=== PATIENT | male | born 1945 | race Hispanic/Latino ===

== ENCOUNTER 2016-11-19 18:51 | Inpatient (IN) | payer MEDICARE ==
[2016-11-19 22:02] LABS: PARTIAL THROMBOPLASTIN TIME 27.6 SECONDS (23.3-32.5)
[2016-11-19 22:05] LABS: BASO # 0.1 K/uL (0.0-0.2); BASO % 0.3 % (0.0-2.0); HEMATOCRIT 41.7 % (35.0-51.0); LYMPH % 4.8 % (20.0-40.0); MEAN CELL VOLUME 88.8 fl (80.0-94.0); MEAN CORPUSCULAR HEMOGLOBIN 27.8 pg (27.0-31.0); MEAN CORPUSCULAR HGB CONC 31.3 g/dL (33.0-37.0); MEAN PLATELET VOLUME 8.9 fl (7.2-11.7); MONO # 1.2 K/uL (0.0-0.8); MONO % 5.9 % (0.0-10.0); NEUT # 17.8 K/uL (1.8-7.0); PLATELET COUNT 258 K/uL (130-400); RED CELL DISTRIBUTION WIDTH 16.8 % (11.5-14.5)
[2016-11-19 22:12] LABS: ALB/GLOB RATIO 1.4 (1.0-2.1); ALKALINE PHOSPHATASE 83 U/L (38-126); ALT/SGPT 27 U/L (21-72); AST/SGOT 23 U/L (17-59); BILIRUBIN,TOTAL 0.8 mg/dl (0.2-1.3); BLOOD UREA NITROGEN 21 mg/dl (9-20); CALCIUM 8.9 mg/dL (8.4-10.2); CARBON DIOXIDE 25 mmol/L (22-30); CHLORIDE 96 mmol/L (98-107); GFR AFRICAN-AMERICAN > 60; GLUCOSE,RANDOM 215 mg/dL (75-110); POTASSIUM 3.8 MMOL/L (3.6-5.0); SODIUM 136 mmol/l (132-148); TOTAL PROTEIN 7.6 G/DL (6.3-8.2)
[2016-11-19] MEDS ORDERED: Sodium Chloride 0.9% 500 ML IV STA (23:08)
--- NOTE | 2016-11-19 23:08 | ED PDOC ---
HPI: Male Pain Time Seen by Provider: 11/19/16 20:18 Chief Complaint (Nursing): Male Genitourinary Chief Complaint (Provider): hematuria and retention History Per: Patient History/Exam Limitations: no limitations Onset/Duration Of Symptoms: Hrs (2 hours) Quality Of Discomfort: Aching Associated Symptoms: denies: Fever, Chills, Nausea, Vomiting Additional Complaint(s): Pt had bladder biopsy earlier today. He reports it was at an area very close to his prostate/urethra. Discharge with hua, which was draining bladder well of pinkish urine. Over the course of the afternoon became darker and his urine output decreased despite drinking large amount of water. 2 hours ago he stopped being able to void freely and has developed slow bloody leaking of urine, with occasional clot. Increased lower abdominal distension as well. Past Medical History Reviewed: Historical Data, Nursing Documentation, Vital Signs Vital Signs: Last Vital Signs Temp 98.1 F 11/19/16 19:09 Pulse 127 H 11/19/16 19:09 Resp 22 11/19/16 19:09 BP 156/81 H 11/19/16 19:09 Pulse Ox 95 11/19/16 19:09 - Medical History PMH: HTN - Surgical History Surgical History: No Surg Hx Other surgeries: Prostate biopsy. H/o urinary retention - Family History Family History: States: No Known Family Hx - Home Medications Home Medications: Ambulatory Orders Medication Instructions Recorded Allopurinol [Zyloprim] 300 mg PO BID 11/19/16 Finasteride [Proscar] 5 mg PO DAILY 11/19/16 Furosemide [Lasix] 40 mg PO AC 11/19/16 GlipiZIDE [Glucotrol] 5 mg PO BID 11/19/16 Lisinopril [Zestril] 10 mg PO DAILY 11/19/16 MetFORMIN [glucoPHAGE] 1,000 mg PO BID 11/19/16 Simvastatin [Simvastatin] 5 mg PO HS 11/19/16 Aspirin [Aspirin Chewable] 81 mg PO DAILY 11/20/16 - Allergies Allergies/Adverse Reactions: Allergies Allergy/AdvReac Type Severity Reaction Status Date / Time No Known Allergies Allergy Verified 11/19/16 19:09 Review of Systems ROS Statement: Except As Marked, All Systems Reviewed And Found Negative (and as per HPI) Constitutional: Negative for: Fever, Chills Gastrointestinal: Positive for: Abdominal Pain Genitourinary Male: Positive for: Hematuria, Penile Discharge. Negative for: Penile Pain Physical Exam - Reviewed Nursing Documentation Reviewed: Yes Vital Signs Reviewed: Yes - Physical Exam Appears: Positive for: Well, Non-toxic Head Exam: Positive for: ATRAUMATIC, NORMOCEPHALIC Skin: Positive for: Warm, Dry Gastrointestinal/Abdominal: Positive for: Bowel Sounds, Soft, Tenderness (mild) , Distended (mild suprapubic) Male Genital Exam: Positive for: bleeding (penile from meatus), other (marked testicular swelling) Back: Positive for: Normal Inspection. Negative for: L CVA Tenderness, R CVA Tenderness Extremity: Positive for: Normal ROM. Negative for: Pedal Edema Neurologic/Psych: Positive for: Alert. Negative for: Motor/Sensory Deficits - Laboratory Results Result Diagrams: 11/22/16 07:15 11/22/16 07:15 Interpretation Of Abn Labs: PLEASE NOTE: ABOVE LABS DO NO DEMONSTRATE LABS AT THE TIME OF ER EVALUATION. Labs demonstrate leukocytosis, no anemia. - ECG O2 Sat by Pulse Oximetry: 95 - Progress Condition: Unchanged - Critical Care Total Time (In Min): 30 Documented Critical Care: Time excludes all time spent performint seperately billable procedures Medical Decision Making Medical Decision Makinp TRISH Stewart Urology resident associated with patient's urologist. Pt should have large hua placed and aggressively hand irrigated prior to CBI. High likelihood of reclotting of hua if actively bleeding. 1030p Initially pt's hua produced large amount of bloody urine, which started to turn light pink. However, then started to leak and then stopped draining through hua. Ordered replacement hua as that hua most likely clotted. 1130p New large 3way hua again initially flowed freely and now slowed. Pt has completed 6L of CBI. TRISH Toure Urology first line production supervisor who recommends to continue CBI and attempt transfer to pt's private urologist. TR[facility]rology at [facility] who advises that if pt just needs CBI should just be hospitalized here. TRISH Toure again and with Dr Chase Hospitalist for hospitalization. Disposition - Clinical Impression Clinical Impression: Hematuria, Hua catheter problem, Urinary retention - Disposition Disposition Time: 23:30 Condition: GUARDED - Pt Status Changed To: Hospital Disposition Of: Inpatient - Admit Certification Admit to Inpatient:: After my assessment, the patient will require hospitalization for at least two midnights. This is because of the severity of symptoms shown, intensity of services needed, and/or the medical risk in this patient being treated as an outpatient. - POA Present On Arrival: Cath Associated UTI
--- NOTE | 2016-11-20 00:24 | CP.PCM.HP ---
History of Present Illness - History of Present Illness History of Present Illness: PCP: Not on service Chief Complaint: Hematuria HPI: 71 years old obese male with hx of Bladder cancer, HTN, DM II and ERMIAS on CPAP, had biopsy of the bladder done early yesterday 11/19/16 at the [facility]. After voiding freely and passing clear pink urine he was sent home. He later gradually began having difficulty to urinate until the flow slowed to only bloody leaks and clots along with severe pain to the lower abdomen. No fever, nausea, vomits, nor diarrhea. In the ED a 3 way hua catheter f24 was inserted which became filled of clots and removed. A new f24 hua catheter was re inserted. PMH: HTN; DM II; HLD; Asthma, COPD: ERMIAS: Gout: Bladder cancer PSH: TURP; Lapband; Bladder Biopsy 11/19/16 SH: No illegal drugs; Quit smoking many years ago; Occasional Alcohol use; Live alone; Retired FH: Father with prostate cancer; mother eith Rhabdomyosarcoma Allergies: NKDA Medication: Metformin; Zestril; Glucotrol; Lasix; Allopurinal; Simvastatin Present on Admission - Present on Admission Any Indicators Present on Admission: No History of DVT/PE: No History of Uncontrolled Diabetes: No Urinary Catheter: No Decubitus Ulcer Present: No Review of Systems - Constitutional Constitutional: absent: Fatigue, Fever, Frequent Falls, Weakness - EENT Eyes: Requires Corrective Lenses. absent: Blurred Vision, Photophobia, Sees Flashes Ears: absent: Decreased Hearing, Ear Discharge, Ear Pain, Tinnitus Nose/Mouth/Throat: Dry Mouth. absent: Epistaxis, Nasal Congestion, Nasal Discharge, Sinus Pain, Sinus Pressure, Sore Throat - Cardiovascular Cardiovascular: Slow Heart Rate. absent: Chest Pain, Dyspnea, Palpitations - Respiratory Respiratory: Wheezing. absent: Cough, Dyspnea, Stridor - Gastrointestinal Gastrointestinal: Abdominal Pain. absent: Constipation, Diarrhea, Hematemesis, Nausea, Vomiting - Genitourinary Genitourinary: absent: Dysuria, Flank Pain, Hematuria, Urinary Hesitance - Musculoskeletal Musculoskeletal: absent: Arthralgias, Back Pain, Muscle Weakness, Neck Pain - Integumentary Integumentary: absent: Pruritus, Rash, Skin Ulcer, Sores, Striae Additional comments: trace edema at the lower extemities - Neurological Neurological: absent: Dizziness, Focal Weakness, Headaches, Loss of Vision, Syncope, Weakness - Psychiatric Psychiatric: absent: Anxiety, Depression, Memory Loss, Panic Attacks - Endocrine Endocrine: absent: Polydipsia, Polyphagia, Polyuria - Hematologic/Lymphatic Hematologic: absent: Easy Bleeding, Easy Bruising Past Patient History - Past Medical History & Family History Past Medical History?: Yes - Past Social History Smoking Status: Former Smoker Chewing Tobacco Use: No Cigar Use: No Alcohol: Social Drugs: Denies Home Situation {Lives}: Alone - CARDIAC Hx Cardiac Disorders: Yes Hx Hypercholesterolemia: Yes Hx Hypertension: Yes - PULMONARY Hx Respiratory Disorders: No Hx Asthma: Yes Hx Sleep Apnea: Yes - NEUROLOGICAL Hx Neurological Disorder: No - HEENT Hx HEENT Problems: No - RENAL Hx Chronic Kidney Disease: No - ENDOCRINE/METABOLIC Hx Endocrine Disorders: Yes Hx Diabetes Mellitus Type 2: Yes - HEMATOLOGICAL/ONCOLOGICAL Hx Cancer: Yes (Bladder) - GENITOURINARY/GYNECOLOGICAL Hx Genitourinary Disorders: Yes (TURP) Hx Bladder Cancer: Yes - PSYCHIATRIC Hx Substance Use: No - SURGICAL HISTORY Hx Surgeries: Yes (bladder biopsy) Other/Comment: TURP; Lap Band - ANESTHESIA Hx Anesthesia: Yes Hx Anesthesia Reactions: No Meds Allergies/Adverse Reactions: Allergies Allergy/AdvReac Type Severity Reaction Status Date / Time No Known Allergies Allergy Verified 11/19/16 19:09 Physical Exam - Constitutional Appears: No Acute Distress - Head Exam Head Exam: ATRAUMATIC, NORMAL INSPECTION, NORMOCEPHALIC - Eye Exam Eye Exam: EOMI, Normal appearance Pupil Exam: NORMAL ACCOMODATION, PERRL - ENT Exam ENT Exam: Mucous Membranes Moist, Normal Exam, Normal External Ear Exam, Normal Oropharynx - Neck Exam Neck exam: Positive for: Normal Inspection. Negative for: Tenderness - Respiratory Exam Respiratory Exam: Wheezes. absent: Rales, Rhonchi - Cardiovascular Exam Cardiovascular Exam: REGULAR RHYTHM, RRR, +S1, +S2. absent: Gallop, JVD - GI/Abdominal Exam GI & Abdominal Exam: absent: Normal Bowel Sounds, Tenderness Additional comments: Obese, Soft, Mild tenderness across the left and right lower abdomen, No guarding, no rebound, no viceromegaleas. - Rectal Exam Rectal Exam: Deferred - Extremities Exam Extremities exam: Positive for: full ROM, normal inspection. Negative for: calf tenderness - Back Exam Back exam: NORMAL INSPECTION. absent: CVA tenderness (L), CVA tenderness (R) - Neurological Exam Neurological exam: Alert, CN II-XII Intact, Oriented x3, Reflexes Normal - Psychiatric Exam Psychiatric exam: Normal Affect, Normal Mood - Skin Skin Exam: Dry, Intact, Normal Color, Warm Results - Vital Signs Recent Vital Signs: Last Vital Signs Temp 98.1 F 11/19/16 19:09 Pulse 127 H 11/19/16 19:09 Resp 22 11/19/16 19:09 BP 156/81 H 11/19/16 19:09 Pulse Ox 95 11/19/16 23:18 - Labs Result Diagrams: 11/20/16 01:02 11/19/16 21:30 Labs: Laboratory Results - last 24 hr 11/19/16 11/19/16 11/19/16 21:30 21:30 21:30 WBC 20.0 H RBC 4.69 Hgb 13.0 Hct 41.7 MCV 88.8 MCH 27.8 MCHC 31.3 L RDW 16.8 H Plt Count 258 MPV 8.9 Neut % (Auto) 89.0 H Lymph % (Auto) 4.8 L Leslie % (Auto) 5.9 Eos % (Auto) 0.0 Baso % (Auto) 0.3 Neut # 17.8 H Lymph # 1.0 Leslie # 1.2 H Eos # 0.0 Baso # 0.1 PT 10.7 INR 1.03 APTT 27.6 Sodium 136 Potassium 3.8 Chloride 96 L Carbon Dioxide 25 Anion Gap 19 BUN 21 H Creatinine 1.0 Est GFR ( Amer) > 60 Est GFR (Non-Af Amer) > 60 Random Glucose 215 H Calcium 8.9 Total Bilirubin 0.8 AST 23 ALT 27 Alkaline Phosphatase 83 Total Protein 7.6 Albumin 4.4 Globulin 3.2 Albumin/Globulin Ratio 1.4 Blood Type Antibody Screen BBK History Checked 11/19/16 21:30 WBC RBC Hgb Hct MCV MCH MCHC RDW Plt Count MPV Neut % (Auto) Lymph % (Auto) Leslie % (Auto) Eos % (Auto) Baso % (Auto) Neut # Lymph # Leslie # Eos # Baso # PT INR APTT Sodium Potassium Chloride Carbon Dioxide Anion Gap BUN Creatinine Est GFR ( Amer) Est GFR (Non-Af Amer) Random Glucose Calcium Total Bilirubin AST ALT Alkaline Phosphatase Total Protein Albumin Globulin Albumin/Globulin Ratio Blood Type AB POSITIVE Antibody Screen Negative BBK History Checked No verified bt Assessment & Plan - Assessment and Plan (Free Text) Assessment: #. Hematuria #. HTN #. DM II #. SIRS #. Dehydration #. Sleep apnea Plan: 71 years old obese male with hx of Bladder cancer, HTN, DM II and ERMIAS on CPAP, had biopsy of the bladder done early yesterday 11/19/16 at the [facility]. . He later developed urinary retention with slow flow of bloody leaks and clots along with severe pain to the lower abdomen. #. Hematuria secondary to bladder biopsy Urinary retention due to the blocked urethra caused by the clots. - Urology Dr Ojeda consulted - Continuous bladder irrigation #. HTN - controll with Zestril - Follow blood pressures #. DM II with hyperglycemia - Diabetic diet - Lispro insulin sliding scale according to accucheck - Metformia - Glucotrol - Last HbA1c was 5.6 as per patient #. SIRS with WBC of 20 and HR of 127 - no antibiotic at present - No antibiotic #. Dehydration - IV fluids with NS - Follow renal labs #. Sleep apnea - Continue CPAP #. DVT prophylaxis with SCD. #. Code Status: Full - Date & Time Date: 11/20/16 Time: 00:24
[2016-11-20 00:53] LABS: NEUTROPHIL 91 % (42-75); REACTIVE LYMPHOCYTES 1 % (0-0); TOTAL CELLS COUNTED 100
[2016-11-20 00:57] LABS: STOMATOCYTES SLIGHT
[2016-11-20 01:06] LABS: BASO # 0.1 K/uL (0.0-0.2); BASO % 0.3 % (0.0-2.0); EOS # 0.1 K/uL (0.0-0.7); EOS % 0.3 % (0.0-4.0); HEMATOCRIT 39.1 % (35.0-51.0); LYMPH # 0.8 K/uL (1.0-4.3); LYMPH % 4.1 % (20.0-40.0); MEAN CELL VOLUME 88.1 fl (80.0-94.0); MEAN CORPUSCULAR HGB CONC 31.7 g/dL (33.0-37.0); MEAN PLATELET VOLUME 8.3 fl (7.2-11.7); MONO % 5.1 % (0.0-10.0); NEUT # 18.2 K/uL (1.8-7.0); NEUT % 90.2 % (50.0-75.0); RED CELL DISTRIBUTION WIDTH 16.6 % (11.5-14.5); WHITE BLOOD COUNT 20.2 K/uL (4.8-10.8)
[2016-11-20] MEDS: Sodium Chloride 0.9% 1,000 ML IV SCH ×3 (01:15→14:35)
[2016-11-20 01:21] LABS: RBC URINE 20664 /hpf (0-3); URINE BILIRUBIN NEGATIVE (NEGATIVE); URINE BLOOD MODERATE (NEGATIVE); URINE COLOR RED (YELLOW); URINE GLUCOSE (UA) NEG (Normal); URINE KETONE NEGATIVE (NEGATIVE); URINE LEUKOCYTE ESTERASE NEG Leu/uL (Negative); URINE PROTEIN 100 mg/dL (NEGATIVE); URINE UROBILINOGEN 0.2-1.0 mg/dL (0.2-1.0); WBC CLUMPS MANY /hpf; WBC URINE 1554 /hpf (0-5)
[2016-11-20] MEDS: Insulin Lispro (humaLOG) 100 Units/ml Inj SC SCH ×5 (09:25→23:02)
--- NOTE | 2016-11-20 11:43 | CP.PCM.PN ---
Subjective - Date & Time of Evaluation Date of Evaluation: 11/20/16 Time of Evaluation: 11:24 - Subjective Subjective: Discussed with nursing staff((9;49AM) Dr sousa(10:13 am) and er (11:57pm). Er md fox pt had prostate biopsy at [facility] yesterday,SEE NOTE, Hospatilist indicates pt had bladder biopsy and has hx of bladder ca.SEE NOTE. ER was advised to transfer to [facility] were accurate info regarding yesterdays procedure could be obtained.Er elected to admit pt to hospatilist service. . Pt has a 3 way hua which was running clear last night but now is not draining even after being irrigated by kvng naranjo. I suggested that the hua should be removed, and pt be given a voiding trial. If pt voids leave hua out. As I comunicated to ER doc last night and staff ltoday, I will Dr sousa will be covering me today,I will return later this evining.,I would also suggest PT should have a CT scan of abdomen and pelvis and pt should be covered with iv antibiotics. MARCELLE Objective - Vital Signs/Intake and Output Vital Signs (last 24 hours): Temp Pulse Resp BP Pulse Ox 97.4 F L 84 23 129/70 96 11/20/16 08:37 11/20/16 08:37 11/20/16 08:37 11/20/16 08:37 11/20/16 08:37 Intake and Output: 11/20/16 11/20/16 06:59 18:59 Intake Total 4700 Output Total 5100 Balance -400 - Medications Medications: Current Medications Allopurinol (Zyloprim) 300 mg PO BID [facility] Last Admin: 11/20/16 09:16 Dose: 300 mg Finasteride (Proscar) 5 mg PO DAILY [facility] Last Admin: 11/20/16 09:17 Dose: 5 mg Glipizide (Glucotrol) 5 mg PO BID [facility] Last Admin: 11/20/16 09:16 Dose: 5 mg Sodium Chloride (Sodium Chloride 0.9%) 1,000 mls @ 75 mls/hr IV .[id number] [facility] Stop: 11/21/16 01:01 Last Admin: 11/20/16 03:45 Dose: 75 mls/hr Insulin Human Lispro (Humalog) 0 units SC [facility] PRN Reason: Protocol Last Admin: 11/20/16 09:32 Dose: Not Given Lisinopril (Zestril) 10 mg PO DAILY [facility] Last Admin: 11/20/16 09:17 Dose: 10 mg Metformin HCl (Glucophage) 1,000 mg PO BID [facility] Last Admin: 11/20/16 09:17 Dose: 1,000 mg Pravastatin Sodium (Pravachol) 10 mg PO HS [facility] - Labs Labs: 11/20/16 01:02 PT 10.7 SECONDS (9.6-11.2) 11/19/16 21:30 INR 1.03 (0.92-1.08) 11/19/16 21:30 APTT 27.6 SECONDS (23.3-32.5) 11/19/16 21:30
--- NOTE | 2016-11-20 12:35 | CT ---
PROCEDURE: CT Abdomen and Pelvis without Oral or IV contrast. HISTORY: Hematuria COMPARISON: None available TECHNIQUE: Contiguous axial images of the abdomen and pelvis. No oral or IV contrast administered. Coronal and Sagittal reformats generated and reviewed. Radiation dose: Total exam DLP = 1099.19 mGy-cm. This CT exam was performed using one or more of the following dose reduction techniques: Automated exposure control, adjustment of the mA and/or kV according to patient size, and/or use of iterative reconstruction technique. FINDINGS: There is limited evaluation of the solid organs without the administration of IV contrast. Examination limited by habitus. LOWER THORAX: Partially imaged heart demonstrates large amount of fat at the level of the intra-atrial septum; correlate clinically including echocardiogram if indicated. Mild left basilar atelectasis. No visible pleural effusion or pneumothorax. Small to moderate hiatal hernia and distal esophageal wall thickening. Gastroesophageal reflux. LIVER: Unremarkable unenhanced appearance. GALLBLADDER AND BILE DUCTS: Unremarkable unenhanced appearance. PANCREAS: Unremarkable unenhanced appearance. SPLEEN: Unremarkable unenhanced appearance. ADRENALS: Unremarkable unenhanced appearance. KIDNEYS AND URETERS: Mild fullness of bilateral renal collecting systems may be due to urinary bladder distension. No obstructing calculus identified. BLADDER: Distended urinary bladder contains air and high density dependent material, possibly hematoma. REPRODUCTIVE: Heterogeneous appearance of the prostate gland which appears borderline enlarged. APPENDIX: The appendix appears within normal limits of caliber. No secondary signs of acute appendicitis. BOWEL: Gastric lap band. The stomach is nondistended. Lack of oral contrast limits evaluation for bowel pathology. The bowel loops appear within normal limits of caliber without evidence of intestinal obstruction. Diverticulosis without CT evidence of acute diverticulitis. PERITONEUM: No significant free fluid. No definite free air. LYMPH NODES: No bulky lymphadenopathy identified. VASCULATURE: Dense atherosclerotic calcifications of the aorta and branches. No aortic aneurysm. BONES: Osseous demineralization. Degenerative changes. OTHER FINDINGS: Bilateral fat containing inguinal hernias. IMPRESSION: Distended urinary bladder contains air and high density dependent material, possibly hematoma. Further evaluation with urinalysis and or cystoscopy as indicated. Mild fullness of bilateral renal collecting systems may be due to urinary bladder distension. No obstructing calculus identified. Diverticulosis without CT evidence acute diverticulitis. Partially imaged heart demonstrates evidence of lipomatous hypertrophy of the intra-atrial septum. Correlate clinically including echocardiogram if indicated. Small to moderate hiatal hernia and distal esophageal wall thickening. Gastroesophageal reflux. Additional findings as above.
[2016-11-20 14:12] LABS: MEAN CELL VOLUME 87.4 fl (80.0-94.0); MEAN CORPUSCULAR HEMOGLOBIN 28.2 pg (27.0-31.0); MEAN CORPUSCULAR HGB CONC 32.2 g/dL (33.0-37.0); RED CELL DISTRIBUTION WIDTH 16.5 % (11.5-14.5); WHITE BLOOD COUNT 18.2 K/uL (4.8-10.8)
[2016-11-20 14:35] LABS: BLOOD UREA NITROGEN 22 mg/dl (9-20); CALCIUM 8.8 mg/dL (8.4-10.2); CARBON DIOXIDE 28 mmol/L (22-30); CHLORIDE 99 mmol/L (98-107); GFR AFRICAN-AMERICAN > 60; GLUCOSE,RANDOM 177 mg/dL (75-110); POTASSIUM 4.1 MMOL/L (3.6-5.0); SODIUM 140 mmol/l (132-148)
[2016-11-20] MEDS ORDERED: SIMVASTATIN 5 MG PO SCH (22:00)
[2016-11-20] MEDS ORDERED: Chlorhexidine Gluconate 1 APPL/PKT TP ONE (22:00)
[2016-11-21] MEDS: Insulin Lispro (humaLOG) 100 Units/ml Inj SC SCH ×4 (07:00→21:17)
--- NOTE | 2016-11-21 10:13 | RAD ---
HISTORY: for OR today COMPARISON: No prior chest x-ray available for comparison. Lung bases is visualized on CT abdomen and pelvis performed 11/20/16 TECHNIQUE: Chest PA and lateral FINDINGS: Examination limited by habitus. LUNGS: Bibasilar atelectasis. Please note that chest x-ray has limited sensitivity for the detection of pulmonary masses. PLEURA: No significant pleural effusion identified. No definite pneumothorax . CARDIOVASCULAR: Cardiomegaly. Atherosclerotic calcifications of the aortic knob. OSSEOUS STRUCTURES: Degenerative changes. VISUALIZED UPPER ABDOMEN: Unremarkable. OTHER FINDINGS: None. IMPRESSION: Bibasilar atelectasis.
--- NOTE | 2016-11-21 10:41 | CP.PCM.PN ---
Subjective - Date & Time of Evaluation Date of Evaluation: 11/21/16 Time of Evaluation: 10:41 - Subjective Subjective: patient seen examined bedside. urinating small amounts of burgundy urine with some clots. no complaints at this time no cp no sob walks with cane at home. vitals stable no acute distress Objective - Vital Signs/Intake and Output Vital Signs (last 24 hours): Temp Pulse Resp BP Pulse Ox 98.3 F 80 20 110/68 96 11/21/16 08:12 11/21/16 08:36 11/21/16 08:12 11/21/16 08:36 11/21/16 08:12 - Medications Medications: Current Medications Allopurinol (Zyloprim) 300 mg PO BID [facility] Last Admin: 11/21/16 08:37 Dose: Not Given Finasteride (Proscar) 5 mg PO DAILY [facility] Last Admin: 11/21/16 08:36 Dose: Not Given Glipizide (Glucotrol) 5 mg PO BID [facility] Last Admin: 11/21/16 08:35 Dose: Not Given Ceftriaxone Sodium 1 gm/ (Sodium Chloride) 100 mls @ 100 mls/hr IVPB DAILY@ 1300 [facility] Insulin Human Lispro (Humalog) 0 units SC [facility]S [facility] PRN Reason: Protocol Last Admin: 11/21/16 07:00 Dose: Not Given Lisinopril (Zestril) 10 mg PO DAILY [facility] Last Admin: 11/21/16 08:36 Dose: Not Given Metformin HCl (Glucophage) 1,000 mg PO BID [facility] Last Admin: 11/21/16 08:35 Dose: Not Given Pravastatin Sodium (Pravachol) 10 mg PO HS [facility] Last Admin: 11/20/16 22:58 Dose: 10 mg - Labs Labs: 11/20/16 13:00 11/20/16 13:00 PT 10.7 SECONDS (9.6-11.2) 11/19/16 21:30 INR 1.03 (0.92-1.08) 11/19/16 21:30 APTT 27.6 SECONDS (23.3-32.5) 11/19/16 21:30 - Constitutional Appears: Non-toxic, No Acute Distress, Other (morbidly obese) - Head Exam Head Exam: ATRAUMATIC, NORMOCEPHALIC - Eye Exam Eye Exam: EOMI, Normal appearance, PERRL Pupil Exam: NORMAL ACCOMODATION - ENT Exam ENT Exam: Mucous Membranes Moist, Normal Oropharynx - Neck Exam Neck Exam: Full ROM, Normal Inspection - Respiratory Exam Respiratory Exam: Clear to Ausculation Bilateral, NORMAL BREATHING PATTERN - Cardiovascular Exam Cardiovascular Exam: RRR, +S1, +S2. absent: Murmur - GI/Abdominal Exam GI & Abdominal Exam: Soft. absent: Tenderness Additional comments: morbidly obese unable to assess for organomegaly or masses due to habitus - Extremities Exam Extremities Exam: Normal Capillary Refill. absent: Calf Tenderness - Back Exam Back Exam: absent: CVA tenderness (L), CVA tenderness (R) - Neurological Exam Neurological Exam: Alert, Awake, Oriented x3 - Psychiatric Exam Psychiatric exam: Normal Affect, Normal Mood - Skin Skin Exam: Dry, Normal Color, Warm Assessment and Plan - Assessment and Plan (Free Text) Plan: 71 years old obese male with hx of Bladder cancer, HTN, DM II and ERMIAS on CPAP, had biopsy of the bladder done early yesterday 11/19/16 at the [facility]. . He later developed urinary retention with slow flow of bloody leaks and clots along with severe pain to the lower abdomen. 11/20/[address] Toure - recommended patient to have voiding trial, and subsequent CT scan today, which has been completed, report pending. Dr. Davalos to see patient today. Called and discussed case with resident at [facility], who reached out to resident who cared for patient. Patient has hx of low grade bladder CA and was found to have a 2mm cystic lesion base of bladder and significant regrowth of lateral lobes L>R. Will await results of CT scan and follow up with urology accordingly. Watchful monitoring. Vitals are stable, and patient is in no acute distress. 11/21/16 Risk stratification for OR today; patient morbidly obese, high risk Cystoscopy with Dr. Toure today: Large amount of clotted blood in bladder/ Friable bladder neck/bleeding from left lateral wall of bladder. He is now s/p cystoscopy/evac of clots fulguration of bleeding vessels Discharge planning to be discussed with Dr. Toure #. Hematuria secondary to bladder biopsy Urinary retention due to the blocked urethra caused by clots. - Urology Dr Rusty consulted - Continuous bladder irrigation - Added ceftriaxone for broad spectrum coverage 2/2 infection? #. HTN - controlled with Zestril - Follow blood pressures #. DM II with hyperglycemia - Diabetic diet - Lispro insulin sliding scale according to accucheck - Metformin - Glucotrol - Last HbA1c was 5.6 as per patient #. Dehydration - IV fluids with NS - Follow renal labs #. Sleep apnea - Continue CPAP #. DVT prophylaxis with SCD. #. Code Status: Full
[2016-11-21] MEDS ORDERED: Lactated Ringer's 1,000 ML IV ONE (12:30)
[2016-11-21] MEDS ORDERED: Propofol 10 mg/ml Inj (20 ML) ONE (12:34)
[2016-11-21] MEDS ORDERED: Midazolam 2 MG/2 ML VIAL ONE (12:36)
[2016-11-21] MEDS ORDERED: Gentamicin IV 80mg/50ml NS(PREMIX) IVPB ONE ×2 (12:45)
[2016-11-21] MEDS ORDERED: Gentamicin 80mg/50ml NS 160 MG/100 ML BAG IVPB ONE (12:49)
--- NOTE | 2016-11-21 13:51 | PCM.SURG1 ---
Surgeon's Initial Post Op Note - Surgeon's Notes Surgeon: Tejal Diamond Finishing Supervisor: ISHA Type of Anesthesia: General LMA Anesthesia Administered By: Staff Pre-Operative Diagnosis: Hematuria/clot retention Operative Findings: Large amount of clotted blood in bladder/Friable bladderneck /bleedinf from left lateral wall of bladder Post-Operative Diagnosis: Hematuria and clot retention due to prior bladder biopsy Operation Performed: cystiscopy/evac of clots fulguration of bleeding vessels Specimen/Specimens Removed: clots Estimated Blood Loss: EBL {In ML}: 50 Blood Products Given: N/A Post-Op Condition: Good Date of Surgery/Procedure: 11/21/16 (500 cc 0f 0ld clotted blood evacuated) Time of Surgery/Procedure: 13:53
[2016-11-21] MEDS ORDERED: Lactated Ringer's 1,000 ML IV SCH (14:02)
--- NOTE | 2016-11-21 16:50 | CON ---
DATE: 11/20/2016 CHIEF COMPLAINT: Gross hematuria. HISTORY OF PRESENT ILLNESS: The patient had a biopsy of either the bladder neck or bladder at the [facility] Tuesday afternoon. Later in the day, he presented in the [facility] ER wi th gross hematuria. Dietrich catheter was placed, irrigation was begun, but the urine failed to clear. I was contacted. I advised the Emergency Department to send the patient to the [facility] where the procedure was done, but they elected to admit the patient to the hospital. In the hospit al, the patient continued to have gross hematuria. Catheter clogged. It was removed several times a nd reinserted. Ultimately, the hematuria did not stop. REVIEW OF SYSTEMS: GENITOURINARY: The patient states he has history of multiple bladder tumors in the past. He believe s that the biopsy that was done was of the bladder. There is some question whether he also had a pro state biopsy. There is no history of hematuria prior to the biopsy. However, he does have multiple episodes of bladder tumors and an apparent history of a TURP. GASTROINTESTINAL: The patient has no history of GI complaints. The patient is diabetic on oral medi cation. He is obese. CARDIAC: The patient has no history of heart attack. He does have a history of arteriosclerotic hea rt disease and is on medication. ORTHOPEDIC, NEUROLOGICAL, INTEGUMENT HISTORY: Unremarkable. 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 PHYSICAL EXAMINATION: VITAL SIGNS: Within normal limits. HEENT: Within normal limits. NECK: Supple. There are no bruits, nodes, or masses. CHEST: Clear bilaterally. There are no rales or rhonchi. ABDOMEN: Soft, nontender. There is no mass or organomegaly. IMPRESSION: Gross hematuria. SUGGEST: The patient to have a CAT scan of the abdomen and pelvis to rule out bladder perforation an d/or clot retention. If the Dietrich catheter continues to be clogged, simply remove the catheter and s ee if the patient can void. If she is unable to void, straight cath him. The patient should be star gilberto on antibiotics and further evaluation be carried out depending on clinical course. Ethan Toure MD cc: [id number] TT: 11/21/2016 16:50:07 Confirmation # [id number] Dictation # [id number] en
--- NOTE | 2016-11-21 17:28 | OP ---
PROCEDURE DATE: 11/21/2016 PREOPERATIVE DIAGNOSES: Urinary retention and gross hematuria and possible clot retention. POSTOPERATIVE DIAGNOSES: Urinary clot retention, bleeding from the bladder neck and lateral sidewall the bladder. PROCEDURE: Cystoscopy, evacuation of clots, and fulguration of bleeding areas. DESCRIPTION OF PROCEDURE: The patient was asked to sign a detailed informed consent. Prior to the p rocedure, all possible risks and complications and limitations of cystoscopy, evacuation of clots wer e . The patient is also aware that if there is an active bleeding area, fulguration may be requ ired and unspecified procedures may be required. He is willing to accept these risks and consent to the procedure and any necessary procedures. He was brought into the room and draped and prepped in t he usual manner. He received additional gentamicin antibiotic plus the antibiotics he was already on . A timeout was taken according to the rules and regulations of [facility]. The patient was cystoscoped with a #24 Olympus panendoscope. The pendulous and membranous urethras w ere normal. The prostatic urethra showed some prostatic hypertrophy. There was evidence of some tra michael at the bladder neck of unknown etiology. The bladder was entered atraumatically. There was a la rge amount of clotted blood in the bladder obscuring the visualization of the bladder wall. A Remy syringe was used to evacuate all these clots from the bladder and they were removed and sent for pat hologic analysis. The bladder was then inspected. There were several areas of active bleeding and t hese were fulgurated with a Bugbee electrode as well as bleeding at the bladder neck. Once the bleed ing had subsided, the bladder was filled with normal saline and a #24 three-way 30 mL catheter was in serted. The patient tolerated this procedure very well and was sent to the recovery room in good con dition. Ethan Toure MD cc: [phone] TT: 11/21/2016 17:27:29 en
--- NOTE | 2016-11-22 01:19 | CARD ---
APPROVED REPORT EKG Measurement Heart [id number] SD [id number] <Conclusion> Ectopic atrial rhythm Low voltage QRS Possible Anterolateral infarct, age undetermined Abnormal ECG
[2016-11-22] MEDS: Insulin Lispro (humaLOG) 100 Units/ml Inj SC SCH ×3 (07:19→17:16)
[2016-11-22 07:27] LABS: MEAN CELL VOLUME 87.6 fl (80.0-94.0); MEAN CORPUSCULAR HEMOGLOBIN 27.8 pg (27.0-31.0); MEAN CORPUSCULAR HGB CONC 31.7 g/dL (33.0-37.0); RED CELL DISTRIBUTION WIDTH 16.7 % (11.5-14.5); WHITE BLOOD COUNT 16.7 K/uL (4.8-10.8)
[2016-11-22 07:42] LABS: BLOOD UREA NITROGEN 20 mg/dl (9-20); CALCIUM 7.8 mg/dL (8.4-10.2); CARBON DIOXIDE 28 mmol/L (22-30); CHLORIDE 99 mmol/L (98-107); GFR AFRICAN-AMERICAN > 60; GLUCOSE,RANDOM 166 mg/dL (75-110); SODIUM 133 mmol/l (132-148)
--- NOTE | 2016-11-22 10:49 | CP.PCM.PN ---
Subjective - Date & Time of Evaluation Date of Evaluation: 11/22/16 Time of Evaluation: 10:46 - Subjective Subjective: PT DOING WELL,AFIBRILE NO BLADDER DISTENTION,NO PAIN URINE CLEAR. SUGGEST D/C SAPP OBSERVE IF VOIDS CLEAR URINE DISCHARGE ON PO ANTIBIOTICS. MARCELLE Objective - Vital Signs/Intake and Output Vital Signs (last 24 hours): Temp Pulse Resp BP Pulse Ox 98.8 F 89 21 99/61 L 95 11/22/16 08:01 11/22/16 08:01 11/22/16 08:01 11/22/16 08:01 11/22/16 08:01 Intake and Output: 11/22/16 11/22/16 06:59 18:59 Output Total 1800 Balance -1800 - Medications Medications: Current Medications Allopurinol (Zyloprim) 300 mg PO BID [facility] Last Admin: 11/22/16 08:58 Dose: 300 mg Finasteride (Proscar) 5 mg PO DAILY [facility] Last Admin: 11/22/16 08:58 Dose: 5 mg Glipizide (Glucotrol) 5 mg PO BID [facility] Last Admin: 11/22/16 08:58 Dose: 5 mg Ceftriaxone Sodium 1 gm/ (Sodium Chloride) 100 mls @ 100 mls/hr IVPB DAILY@ 1300 [facility] Lactated Ringer's (Lactated Ringer's) 1,000 mls @ 50 mls/hr IV .Q20H [facility] Last Admin: 11/22/16 02:19 Dose: Not Given Insulin Human Lispro (Humalog) 0 units SC ACHS [facility] PRN Reason: Protocol Last Admin: 11/22/16 07:19 Dose: Not Given Lisinopril (Zestril) 10 mg PO DAILY [facility] Last Admin: 11/21/16 17:00 Dose: 10 mg Metformin HCl (Glucophage) 1,000 mg PO BID [facility] Last Admin: 11/22/16 08:58 Dose: 1,000 mg Pravastatin Sodium (Pravachol) 10 mg PO [facility] Last Admin: 11/21/16 21:18 Dose: 10 mg - Labs Labs: 11/22/16 07:15 11/22/16 07:15 PT 10.7 SECONDS (9.6-11.2) 11/19/16 21:30 INR 1.03 (0.92-1.08) 11/19/16 21:30 APTT 27.6 SECONDS (23.3-32.5) 11/19/16 21:30
[2016-11-22] MEDS ORDERED: Oxycodone/Acetaminophen 5/325 mg Tab PO STA (16:01)
--- NOTE | 2016-11-22 19:02 | CP.PCM.PN ---
Subjective - Date & Time of Evaluation Date of Evaluation: 11/22/16 Time of Evaluation: 17:00 - Subjective Subjective: Pt seen and examined. Had cystoscopy and evacuation of blood clots yesterday plus fulgaration of bleeders. Hua catheter was pulled out but patient did not have urine output for over 8 hrs. Objective - Vital Signs/Intake and Output Vital Signs (last 24 hours): Temp Pulse Resp BP Pulse Ox 100.1 F H 115 H 20 118/67 93 L 11/22/16 16:08 11/22/16 16:08 11/22/16 16:08 11/22/16 16:08 11/22/16 16:08 Intake and Output: 11/22/16 11/22/16 06:59 18:59 Output Total 1800 Balance -1800 - Medications Medications: Current Medications Allopurinol (Zyloprim) 300 mg PO BID [facility] Last Admin: 11/22/16 08:58 Dose: 300 mg Aspirin (Aspirin Chewable) 81 mg PO DAILY [facility] Finasteride (Proscar) 5 mg PO DAILY [facility] Last Admin: 11/22/16 08:58 Dose: 5 mg Furosemide (Lasix) 40 mg PO DAILY [facility] Glipizide (Glucotrol) 5 mg PO BID [facility] Last Admin: 11/22/16 17:15 Dose: 5 mg Ceftriaxone Sodium 1 gm/ (Sodium Chloride) 100 mls @ 100 mls/hr IVPB DAILY@ 1300 [facility] Last Admin: 11/22/16 13:34 Dose: 100 mls/hr Lactated Ringer's (Lactated Ringer's) 1,000 mls @ 50 mls/hr IV .Q20H [facility] Last Admin: 11/22/16 02:19 Dose: Not Given Insulin Human Lispro (Humalog) 0 units SC [facility] PRN Reason: Protocol Last Admin: 11/22/16 17:16 Dose: Not Given Lisinopril (Zestril) 10 mg PO DAILY [facility] Last Admin: 11/21/16 17:00 Dose: 10 mg Metformin HCl (Glucophage) 1,000 mg PO BID [facility] Last Admin: 11/22/16 17:15 Dose: 1,000 mg Pravastatin Sodium (Pravachol) 10 mg PO [facility] Last Admin: 11/21/16 21:18 Dose: 10 mg Tamsulosin HCl (Flomax) 0.4 mg PO DAILY [facility] Stop: 11/22/16 18:22 - Labs Labs: 11/22/16 07:15 11/22/16 07:15 PT 10.7 SECONDS (9.6-11.2) 11/19/16 21:30 INR 1.03 (0.92-1.08) 11/19/16 21:30 APTT 27.6 SECONDS (23.3-32.5) 11/19/16 21:30 - Constitutional Appears: No Acute Distress - Head Exam Head Exam: ATRAUMATIC - Eye Exam Eye Exam: absent: Scleral icterus - ENT Exam ENT Exam: Mucous Membranes Moist - Neck Exam Neck Exam: absent: Meningismus - Respiratory Exam Respiratory Exam: absent: Rhonchi, Wheezes, Respiratory Distress - Cardiovascular Exam Cardiovascular Exam: REGULAR RHYTHM, +S1, +S2 - GI/Abdominal Exam GI & Abdominal Exam: Soft. absent: Tenderness - Rectal Exam Rectal Exam: Deferred - Neurological Exam Neurological Exam: Alert, Oriented x3 - Psychiatric Exam Psychiatric exam: Normal Affect - Skin Skin Exam: Dry, Intact Assessment and Plan (1) Hematuria Status: Acute (2) Urinary retention Status: Acute - Assessment and Plan (Free Text) Assessment: 71 yo male with history of Bladder Ca, HTN, DM2 and ERMIAS had biopsy of the urinary bladder on 11/19/2016 at [facility]. Post biopsy was complicated with urinary retention secondary to multiple clot formation causing urinary obstruction. 1. Urinary Retention clots causing blockade Dr Toure, urology consult, did cystoscopy with evacuation of clotted blood plus fulgaration of blood vessels hua catheter was DC after CBI return became clear however after pulling out hua patient was unable to urinate will restart hua if no urine output in 0ne hour continue Ceftriaxone IV daily 2. HTN BP controlled Zestril 10mg PO daily 3. DM II with hyperglycemia continue Metformin and Glucotrol Lispro insulin sliding scale according to accucheck Last HbA1c was 5.6 as per patient 4. Dehydration resolved 5. Sleep apnea Continue CPAP
[2016-11-23 00:23] LABS: RBC URINE 508 /hpf (0-3); URINE BILIRUBIN NEGATIVE (NEGATIVE); URINE BLOOD LARGE (NEGATIVE); URINE COLOR YELLOW (YELLOW); URINE GLUCOSE (UA) NEG (Normal); URINE KETONE TRACE mg/dL (NEGATIVE); URINE LEUKOCYTE ESTERASE LARGE Leu/uL (Negative); URINE PROTEIN 100 mg/dL (NEGATIVE); URINE UROBILINOGEN 0.2-1.0 mg/dL (0.2-1.0); WBC URINE 139 /hpf (0-5)
[2016-11-23 07:41] VITALS: BP 102/59; PULSE 96; RESP 19; TEMP 99.5; O2SAT 94
[2016-11-23 07:46] LABS: BASO # 0.1 K/uL (0.0-0.2); BASO % 0.4 % (0.0-2.0); EOS # 0.3 K/uL (0.0-0.7); EOS % 1.6 % (0.0-4.0); HEMATOCRIT 30.5 % (35.0-51.0); LYMPH % 5.6 % (20.0-40.0); MEAN CELL VOLUME 87.8 fl (80.0-94.0); MEAN CORPUSCULAR HEMOGLOBIN 27.6 pg (27.0-31.0); MEAN CORPUSCULAR HGB CONC 31.5 g/dL (33.0-37.0); MEAN PLATELET VOLUME 8.5 fl (7.2-11.7); MONO % 11.2 % (0.0-10.0); NEUT # 14.5 K/uL (1.8-7.0); NEUT % 81.2 % (50.0-75.0); PLATELET COUNT 228 K/uL (130-400); WHITE BLOOD COUNT 17.9 K/uL (4.8-10.8)
[2016-11-23 08:14] LABS: BLOOD UREA NITROGEN 17 mg/dl (9-20); CARBON DIOXIDE 28 mmol/L (22-30); CHLORIDE 101 mmol/L (98-107); GFR AFRICAN-AMERICAN > 60; GLUCOSE,RANDOM 167 mg/dL (75-110); SODIUM 135 mmol/l (132-148)
[2016-11-23] MEDS: Insulin Lispro (humaLOG) 100 Units/ml Inj SC SCH ×2 (08:18→12:31)
--- NOTE | 2016-11-23 10:13 | CP.PCM.PN ---
Subjective - Date & Time of Evaluation Date of Evaluation: 11/23/16 Time of Evaluation: 10:10 - Subjective Subjective: PT could not void hua reinserted. Suggest hua to leg bag,[facility] Objective - Vital Signs/Intake and Output Vital Signs (last 24 hours): Temp Pulse Resp BP Pulse Ox 99.5 F 96 H 19 102/59 L 94 L 11/23/16 07:40 11/23/16 07:40 11/23/16 07:40 11/23/16 09:14 11/23/16 07:40 Intake and Output: 11/23/16 11/23/16 06:59 18:59 Output Total 1600 Balance -1600 - Medications Medications: Current Medications Allopurinol (Zyloprim) 300 mg PO BID [facility] Last Admin: 11/23/16 09:12 Dose: 300 mg Aspirin (Aspirin Chewable) 81 mg PO DAILY [facility] Last Admin: 11/23/16 09:12 Dose: 81 mg Finasteride (Proscar) 5 mg PO DAILY [facility] Last Admin: 11/23/16 09:12 Dose: 5 mg Furosemide (Lasix) 40 mg PO DAILY [facility] Last Admin: 11/23/16 09:11 Dose: 40 mg Glipizide (Glucotrol) 5 mg PO BID [facility] Last Admin: 11/23/16 09:12 Dose: 5 mg Ceftriaxone Sodium 1 gm/ (Sodium Chloride) 100 mls @ 100 mls/hr IVPB DAILY@ 1300 [facility] Last Admin: 11/22/16 13:34 Dose: 100 mls/hr Lactated Ringer's (Lactated Ringer's) 1,000 mls @ 50 mls/hr IV .Q20H [facility] Last Admin: 11/22/16 02:19 Dose: Not Given Insulin Human Lispro (Humalog) 0 units SC ACHS [facility] PRN Reason: Protocol Last Admin: 11/23/16 08:18 Dose: Not Given Lisinopril (Zestril) 10 mg PO DAILY [facility] Last Admin: 11/23/16 09:14 Dose: 10 mg Metformin HCl (Glucophage) 1,000 mg PO BID [facility] Last Admin: 11/23/16 09:11 Dose: 1,000 mg Pravastatin Sodium (Pravachol) 10 mg PO HS [facility] Last Admin: 11/22/16 21:40 Dose: 10 mg Tamsulosin HCl (Flomax) 0.4 mg PO HS [facility] - Labs Labs: 11/23/16 06:50 11/23/16 06:50 PT 10.7 SECONDS (9.6-11.2) 11/19/16 21:30 INR 1.03 (0.92-1.08) 11/19/16 21:30 APTT 27.6 SECONDS (23.3-32.5) 11/19/16 21:30
--- NOTE | 2016-11-23 10:40 | PQF GENQUE ---
Dr. Culp, Please specify the underlying cause of SIRS (suspected, probable, questionable, or clinical is acceptable if documented at the time of discharge) Infectious cause (please specify infectious process) Non-infectious cause (please specify non-infectious process) OR: Unable to determine OR: Other explanation of clinical finding Attending progress note: biopsy of the urinary bladder on 2016 ;Post biopsy was complicated with urinary retention secondary to multiple clot formation causing urinary obstruction; cystoscopy with evacuation of clotted blood plus fulgaration of blood vessels ;hua catheter was DC after CBI return became clear however after pulling out hua patient was unable to urinate will restart hua ;continue Ceftriaxone IV; other diagnoses include: Obesity, HTN, DM2 with Hyperglycemia, Dehydration: Resolved and Sleep Apnea temperature:98.2->98.2->98.8->100.1->100.2->99.5 pulse:127->91->91->102->84->90-.66 WBC:20..0>20.2->18.2->16.7 left shift urine culture: negative cxr report; Bibasilar atelectasis This form is a permanent part of the medical record Clarification of your documentation is requested to better reflect the severity of illness and intensity of treatment of your patient. Indicators present [] Specify: [] [] Specify: [] [] Specify: [] [] Specify: [] Location in the medical record that reflects the above clinical findings: [] Treatment Provided: [] PHYSICIAN'S RESPONSE Based on your medical judgment of the clinical indicators outlined above please clarify the following: [] Practitioner response [x] If unable to determine, please check the box, sign and date. Present On Admission (POA) Indicator: [x] Present at the time of admission [] Not present at the time of admission [] Clinically Undetermined In responding to this query, please exercise your independent professional judgment. The fact that a question is asked does not imply that any particular answer is desired or expected. Thank you for your clarification on this documentation. If you have any questions please call. * Thank you, Penny Shankar RN BSN ext. #[phone] MTDD
--- NOTE | 2016-11-23 10:53 | PQF GENQUE ---
Dr. Culp, In agreement with the BMI :46.1: as listed in the EMR? if you agree please include the BMI in your progress note OR: Disagree OR: Unable to determine OR: Other explanation of clinical finding EMR lists a BMI:46.1 6ft 340lb. Attending progress note of 11/21:Constitutional : Other (morbidly obese) - GI/Abdominal Exam Additional comments: morbidly obese 11/21/16 Risk stratification for OR today; patient morbidly obese, high risk This form is a permanent part of the medical record Clarification of your documentation is requested to better reflect the severity of illness and intensity of treatment of your patient. Indicators present [] Specify: [] [] Specify: [] [] Specify: [] [] Specify: [] Location in the medical record that reflects the above clinical findings: [X] heading of EMR Treatment Provided: [] PHYSICIAN'S RESPONSE Based on your medical judgment of the clinical indicators outlined above please clarify the following: [X] Practitioner response [] If unable to determine, please check the box, sign and date. Present On Admission (POA) Indicator: [x] Present at the time of admission [] Not present at the time of admission [] Clinically Undetermined In responding to this query, please exercise your independent professional judgment. The fact that a question is asked does not imply that any particular answer is desired or expected. Thank you for your clarification on this documentation. If you have any questions please call. * Thank you, Penny Shankar RN BSN ext. #[phone] MTDD
[2016-11-23 11:32] LABS: EOSINOPHIL 2 % (0-7); NEUTROPHIL 83 % (42-75); TOTAL CELLS COUNTED 100
--- NOTE | 2016-11-23 12:18 | CP.PCM.DIS ---
Provider - Provider Date of Admission: 11/21/16 16:17 Attending physician: Mark Chase Consults: Dr Toure Time Spent in preparation of Discharge (in minutes): 30 Diagnosis - Discharge Diagnosis (1) Hematuria Status: Acute Comment: cystoscopy was done with clot evacuation and fulgaration of bleeding vessels (2) Urinary retention Status: Acute Comment: hua catheter was re-inserted and patient to follow up with Dr Toure. Cipro 500mg PO BID for 7 days. Flomax 0.4mg PO daily Hospital Course - Lab Results Lab Results: Most Recent Lab Values WBC 17.9 K/uL (4.8-10.8) H 11/23/16 06:50 RBC 3.47 Mil/uL (4.40-5.90) L 11/23/16 06:50 Hgb 9.6 g/dL (12.0-18.0) L 11/23/16 06:50 Hct 30.5 % (35.0-51.0) L 11/23/16 06:50 MCV 87.8 fl (80.0-94.0) 11/23/16 06:50 MCH 27.6 pg (27.0-31.0) 11/23/16 06:50 MCHC 31.5 g/dL (33.0-37.0) L 11/23/16 06:50 RDW 17.0 % (11.5-14.5) H 11/23/16 06:50 Plt Count 228 K/uL (130-400) 11/23/16 06:50 MPV 8.5 fl (7.2-11.7) 11/23/16 06:50 Neut % (Auto) 81.2 % (50.0-75.0) H 11/23/16 06:50 Lymph % (Auto) 5.6 % (20.0-40.0) L 11/23/16 06:50 [place] % (Auto) 11.2 % (0.0-10.0) H 11/23/16 06:50 Eos % (Auto) 1.6 % (0.0-4.0) 11/23/16 06:50 Baso % (Auto) 0.4 % (0.0-2.0) 11/23/16 06:50 Neut # 14.5 K/uL (1.8-7.0) H 11/23/16 06:50 Lymph # 1.0 K/uL (1.0-4.3) 11/23/16 06:50 [place] # 2.0 K/uL (0.0-0.8) H 11/23/16 06:50 Eos # 0.3 K/uL (0.0-0.7) 11/23/16 06:50 Baso # 0.1 K/uL (0.0-0.2) 11/23/16 06:50 Neutrophils % (Manual) 83 % (42-75) H 11/23/16 06:50 Band Neutrophils % 3 % (0-2) H 11/19/16 21:30 Lymphocytes % (Manual) 5 % (20-50) L 11/23/16 06:50 Reactive Lymphs % 1 % (0-0) H 11/19/16 21:30 Monocytes % (Manual) 10 % (0-10) 11/23/16 06:50 Eosinophils % (Manual) 2 % (0-7) 11/23/16 06:50 Platelet Estimate Normal (NORMAL) 11/23/16 06:50 Hypochromasia (manual) Slight 11/23/16 06:50 Anisocytosis (manual) Slight 11/23/16 06:50 Target Cells Slight 11/19/16 21:30 Stomatocytes Slight 11/19/16 21:30 PT 10.7 SECONDS (9.6-11.2) 11/19/16 21:30 INR 1.03 (0.92-1.08) 11/19/16 21:30 APTT 27.6 SECONDS (23.3-32.5) 11/19/16 21:30 Sodium 135 mmol/l (132-148) 11/23/16 06:50 Potassium 4.0 MMOL/L (3.6-5.0) 11/23/16 06:50 Chloride 101 mmol/L (98-107) 11/23/16 06:50 Carbon Dioxide 28 mmol/L (22-30) 11/23/16 06:50 Anion Gap 10 (10-20) 11/23/16 06:50 BUN 17 mg/dl (9-20) 11/23/16 06:50 Creatinine 0.9 mg/dL (0.8-1.5) 11/23/16 06:50 Est GFR ( Amer) > 60 11/23/16 06:50 Est GFR (Non-Af Amer) > 60 11/23/16 06:50 POC Glucose (mg/dL) 209 mg/dL (65-110) H 11/23/16 10:51 Random Glucose 167 mg/dL (75-110) H 11/23/16 06:50 Calcium 8.0 mg/dL (8.4-10.2) L 11/23/16 06:50 Total Bilirubin 0.8 mg/dl (0.2-1.3) 11/19/16 21:30 AST 23 U/L (17-59) 11/19/16 21:30 ALT 27 U/L (21-72) 11/19/16 21:30 Alkaline Phosphatase 83 U/L (38-126) 11/19/16 21:30 Total Protein 7.6 G/DL (6.3-8.2) 11/19/16 21:30 Albumin 4.4 g/dL (3.5-5.0) 11/19/16 21:30 Globulin 3.2 gm/dL (2.2-3.9) 11/19/16 21:30 Albumin/Globulin Ratio 1.4 (1.0-2.1) 11/19/16 21:30 Urine Color Yellow (YELLOW) 11/22/16 20:24 Urine Clarity Cloudy (Clear) 11/22/16 20:24 Urine pH 6.0 (5.0-8.0) 11/22/16 20:24 Ur Specific [place] 1.016 (1.003-1.030) 11/22/16 20:24 Urine Protein 100 mg/dL (NEGATIVE) 11/22/16 20:24 Urine Glucose (UA) Neg mg/dL (Normal) 11/22/16 20:24 Urine Ketones Trace mg/dL (NEGATIVE) 11/22/16 20:24 Urine Blood Large (NEGATIVE) 11/22/16 20:24 Urine Nitrate Negative (NEGATIVE) 11/22/16 20:24 Urine Bilirubin Negative (NEGATIVE) 11/22/16 20:24 Urine Urobilinogen 0.2-1.0 mg/dL (0.2-1.0) 11/22/16 20:24 Ur Leukocyte Esterase Large Alejandra/uL (Negative) 11/22/16 20:24 Urine RBC (Auto) 508 /hpf (0-3) H 11/22/16 20:24 Urine WBC Clumps (Auto) Many /hpf (NONE) H 11/19/16 23:30 Urine Microscopic WBC 139 /hpf (0-5) H 11/22/16 20:24 Ur Squamous Epith Cells < 1 /hpf (0-5) 11/22/16 20:24 Urine Yeast (Budding) Occ /hpf (NEGATIVE) H 11/22/16 20:24 Blood Type AB POSITIVE 11/19/16 21:30 Blood Type Confirm AB POSITIVE 11/19/16 22:39 Antibody Screen Negative 11/19/16 21:30 BBK History Checked No verified bt 11/19/16 21:30 - Hospital Course Hospital Course: 71 yo morbidly obese male with history of Bladder Cancer, DM2, HTN and ERMIAS had biopsy of the bladder on 11/19/2016 and was complicated with hematuria and urinary obstruction secondary to clot formation. Pt was admitted and had cystoscopy with evacuation of blood clot and fulgaration of bleeding vessels. Hua catheter was removed after CBI return became clear, however, patient was unable to urinate without the hua catheter. Catheter was re-inserted and patient was discharged in stable condition with the hua catheter. He would follow up with Dr Toure within a week. Discharge Exam - Head Exam Head Exam: ATRAUMATIC - Eye Exam Eye Exam: absent: Scleral icterus - ENT Exam ENT Exam: Mucous Membranes Moist - Respiratory Exam Respiratory Exam: absent: Wheezes, Respiratory Distress - Cardiovascular Exam Cardiovascular Exam: REGULAR RHYTHM, +S1, +S2 - GI/Abdominal Exam GI & Abdominal Exam: Soft. absent: Tenderness - Rectal Exam Rectal Exam: Deferred - Neurological Exam Neurological exam: Alert, Oriented x3 - Psychiatric Exam Psychiatric exam: Normal Affect - Skin Skin Exam: Dry, Intact Discharge Plan - Discharge Medications Prescriptions: Ciprofloxacin [Cipro] 500 mg PO BID #14 tab Tamsulosin [Flomax] 0.4 mg PO HS #30 cap - Follow Up Plan Condition: GUARDED Disposition: HOME/ ROUTINE Instructions: Acute Hematuria (DC) Referrals: Ethan Toure Jr., MD [Staff Provider] -
== END 2016-11-23 13:40 | disposition home or self-care (01) | DRG 669 ==
LOC: H.ER 18:51 → INTOOBSV 11-20 00:15 → H.ERHOLD 11-20 00:15 → H.MEDSURG1 11-20 03:59 → OBSVTOIN 11-21 16:17
PROVIDERS: ADMIT Internal Medicine; ATTEND Internal Medicine
PROC: 3E1K78Z Irrigation of Genitourinary Tract using Irrigating Substance, Via Natural or Artificial Opening (ICD-10-PCS; principal; 2016-11-19)
PROC: 0T5B8ZZ Destruction of Bladder, Via Natural or Artificial Opening Endoscopic (ICD-10-PCS; 2016-11-21)
PROC: 0TCB8ZZ Extirpation of Matter from Bladder, Via Natural or Artificial Opening Endoscopic (ICD-10-PCS; 2016-11-21)
DX: N99.89 Other postprocedural complications and disorders of genitourinary system (principal); N99.820 Postprocedural hemorrhage of a genitourinary system organ or structure following a genitourinary system procedure; E11.65 Type 2 diabetes mellitus with hyperglycemia; R65.10 Systemic inflammatory response syndrome (SIRS) of non-infectious origin without acute organ dysfunction; N13.8 Other obstructive and reflux uropathy; J44.9 Chronic obstructive pulmonary disease, unspecified; E86.0 Dehydration; Z68.42 Body mass index [BMI] 45.0-49.9, adult; E66.01 Morbid (severe) obesity due to excess calories; R31.0 Gross hematuria; I10 Essential (primary) hypertension; R33.8 Other retention of urine; Z85.51 Personal history of malignant neoplasm of bladder; G47.33 Obstructive sleep apnea (adult) (pediatric); E78.5 Hyperlipidemia, unspecified; J45.909 Unspecified asthma, uncomplicated; M10.9 Gout, unspecified; N32.89 Other specified disorders of bladder; Y84.8 Other medical procedures as the cause of abnormal reaction of the patient, or of later complication, without mention of misadventure at the time of the procedure